=== PATIENT | male | born 1940 | race Caucasian/White ===

== ENCOUNTER 2021-05-31 19:37 | Emergency (ER) | payer MEDICARE, OTHER ==
[2021-05-31] MEDS ORDERED: Sodium Chloride 0.9% 10 ML Syringe FLUSH PRN (19:41)
[2021-05-31] MEDS ORDERED: Heparin Sodium 5,000 Units/ML Vial IVPUSH ONE (19:49)
[2021-05-31] MEDS ORDERED: Heparin Sodium/D5W 25,000 UNITS/500 ML BAG IV SCH (20:00)
[2021-05-31] MEDS ORDERED: Norepinephrine Bit/D5W Premix 4 MG in Premix Bag 1 BAG IV SCH (20:45)
[2021-05-31] MEDS ORDERED: Lidocaine 2% Jelly 10 ML Urojet MUCMEM ONE (20:58)
[2021-05-31 21:10] LABS: CORONAVIRUS COVID-19 NAA NEGATIVE (NEGATIVE)
[2021-05-31] MEDS ORDERED: cefTRIAXone 1 GM in Sodium Chloride 0.9% 50 ML IV ONE (21:35)
[2021-05-31] MEDS ORDERED: Sodium Chloride 0.9% 1,000 ML IV SCH (21:45)
== END 2021-06-01 04:10 ==
LOC: JP.ED 19:37
DX: A41.9 Sepsis, unspecified organism (principal); R65.21 Severe sepsis with septic shock; I13.0 Hypertensive heart and chronic kidney disease with heart failure and stage 1 through stage 4 chronic kidney disease, or unspecified chronic kidney disease; I95.9 Hypotension, unspecified; E11.22 Type 2 diabetes mellitus with diabetic chronic kidney disease; N18.32 Chronic kidney disease, stage 3b; I50.9 Heart failure, unspecified; N17.9 Acute kidney failure, unspecified; E11.51 Type 2 diabetes mellitus with diabetic peripheral angiopathy without gangrene; I87.2 Venous insufficiency (chronic) (peripheral); Z20.822 Contact with and (suspected) exposure to COVID-19
CPT/HCPCS: 0241U; 36415; 36556; 51702; 70450; 71045; 74176; 80053; 81001; 83605; 83615; 83880; 84484; 85025; 87040; 87086; 93005; 96365; 96366; 96368; 96375; 99285; J0696; J1642; J1644; J3370; J7030; J7050